=== PATIENT | female | born 1950 | race Caucasian/White ===

== ENCOUNTER 2018-04-04 05:57 | Day surgery (SDC) | payer MEDICARE, OTHER ==
[2018-04-04] MEDS ORDERED: DIPRIVAN 200 MG/20 ML IV ONE (05:58)
[2018-04-04] MEDS ORDERED: Lactated Ringers 1,000 ML IV SCH (06:30)
[2018-04-04 08:43] VITALS: BP 122/77; PULSE 71; O2SAT 97
--- NOTE | 2018-04-04 10:43 | OP ---
SURGERY DATE/TIME: 04/04/201818 PREOPERATIVE DIAGNOSIS: Screening exam. POSTOPERATIVE DIAGNOSIS: Sigmoid diverticulosis otherwise normal colon. PROCEDURE: Colonoscopy. SURGEON: Dr. Ramos. ANESTHESIA: MAC. Medications given by anesthesia department. HISTORY: The patient is a 68 year-old white female presenting now for screening colonoscopy. She was appraised of the risks of the procedure including the risk of perforation, phlebitis, untoward reaction to medication, bleeding and missed lesions. The patient verbalized her understanding and desired to have the procedure performed. DESCRIPTION OF PROCEDURE: The patient was given the medications by the anesthesia department. She had continuous pulse oximetry, ECG monitoring, intermittent blood pressure monitoring and tidal CO2 monitoring during the examination. She was placed in the left lateral decubitus position. A digital rectal examination was performed and revealed normal anal sphincter tone and no masses. The flexible Olympus pediatric colonoscope was used to intubate the rectum. A view of the colon was developed sequentially to the cecum. Upon insertion and withdrawal, including a retroflex view in the rectum, no mucosal lesions found other than moderate sigmoid diverticulosis. The scope was removed from the patient who tolerated the procedure well and was sent back to OP recovery in good condition. The prep was noted to be fair to good.
== END 2018-04-04 08:58 | disposition home or self-care (01) ==
LOC: SDC 05:57
PROVIDERS: ATTEND Family Medicine
DX: Z12.11 Encounter for screening for malignant neoplasm of colon (principal); K57.30 Diverticulosis of large intestine without perforation or abscess without bleeding; E11.9 Type 2 diabetes mellitus without complications; E78.5 Hyperlipidemia, unspecified
CPT/HCPCS: 94250; J2704

== ENCOUNTER 2021-10-23 10:59 | Emergency (ER) | payer MEDICARE, OTHER ==
[2021-10-23] MEDS ORDERED: Pepcid 20 MG PO ONE (11:30)
[2021-10-23] MEDS ORDERED: BENADRYL 25 MG CAPSULE PO ONE (11:30)
[2021-10-23] MEDS ORDERED: solu-MEDROL 125 MG, Sterile H2O 10 ml 10 ML IM ONE ×2 (11:31)
--- NOTE | 2021-10-23 11:31 | ERPHSYRPT ---
- History of Present Illness Time Seen by Provider: 10/23/21 11:29 Patient Subjective Stated Complaint: Pt states "I noticed some hives and I noticed my face swelling a little yeserday. I took an allergy med last night but my face is still swollen." Triage Nursing Assessment: Pt presented alert and oriented X 3, skin pwd pt face is slightly flushed with slight swelling noticed. no difficulty breathing, no neck or mouth swelling. Allergies/Adverse Reactions: No Known Drug Allergies Allergy (Verified 04/04/18 06:22) Home Medications: Lansoprazole 30 mg PO DAILY 07/13/17 [History] Levothyroxine Sodium 75 Mcg [Synthroid 75 Mcg] 75 mcg PO DAILY 07/13/17 [History] Magnesium Chloride 64 mg [Slow-Mag 64 MG] 64 mg PO DAILY 07/13/17 [History] Meloxicam 14 mg PO DAILY PRN PRN 07/13/17 [History] Triamterene/Hydrochlorothiazid [Triamterene-Hctz 37.5-25 mg Cp] 37.5 mg PO DAILY 07/13/17 [History] Hx Tetanus, Diphtheria Vaccination/Date Given: No Hx Influenza Vaccination/Date Given: No Hx Pneumococcal Vaccination/Date Given: No Immunizations Up to Date: Yes Travel Risk - International Travel Have you traveled outside of the country in past 3 weeks: No - Coronavirus Screening Are you exhibiting any of the following symptoms?: No Close contact with a COVID-19 positive Pt in past 14-21 Days: No - Vaccine Status Have you recieved a Covid-19 vaccination: Yes [facility]: Moderna - Vaccination Dates Date of 2cond Vaccination (if applicable): 2020 - Past Medical History Pertinent Past Medical History: Yes Neurological History: No Pertinent History ENT History: No Pertinent History Cardiac History: High Cholesterol Respiratory History: No Pertinent History Endocrine Medical History: Diabetes Type II, Hypothyroidism Musculoskeletal History: Osteoarthritis GI Medical History: No Pertinent History History: Other Psycho-Social History: No Pertinent History Female Reproductive Disorders: Menstrual Problems Other Medical History: THYROID REMOVED, CHOLECYSTECTOMY, HYSTERECTOMY - Past Surgical History Past Surgical History: Yes Neuro Surgical History: No Pertinent History Cardiac: No Pertinent History Respiratory: No Pertinent History Gastrointestinal: Cholecystectomy Genitourinary: No Pertinent History Musculoskeletal: No Pertinent History Female Surgical History: Hysterectomy Other Surgical History: thyroidectomy - Social History Smoking Status: Never smoker Exposure to second hand smoke: No Drug Use: none Patient Lives Alone: No - Nursing Vital Signs Nursing Vital Signs: Initial Vital Signs Temperature 97.5 F 10/23/21 11:07 Pulse Rate 83 10/23/21 11:07 Respiratory Rate 20 10/23/21 11:07 Blood Pressure 150/103 10/23/21 11:07 O2 Sat by Pulse Oximetry 99 10/23/21 11:07 Pain Scale Pain Intensity 0 - Physical Exam SpO2: 99 - Departure Departure Disposition: Home Clinical Impression: Allergic reaction Qualifiers: Encounter type: initial encounter Qualified Code(s): T78.40XA - Allergy, unspecified, initial encounter Condition: Stable Critical Care Time: No Referrals: MINOO PORTILLO [Primary Care Provider] - Follow up/PCP as directed (tomorrow for re evaluation) Instructions: Angioedema, Anaphylaxis (DC) Additional Instructions: follow up with PCP for re evaluation, return if has tongue swelling/throat closing sensation, weakness/feeling as going to pass out etc. Prescriptions: Diphenhydramine HCl 25 mg [Benadryl 25 mg Capsule] 25 mg PO Q4H PRN PRN #20 cap PRN Reason: Allergies Famotidine 20 mg [Pepcid 20 MG] 20 mg PO BID #10 tablet
[2021-10-23] MEDS ORDERED: BENADRYL 25 MG CAPSULE ONE (11:33)
[2021-10-23] MEDS ORDERED: Sterile H2O 10 ml IJ ONE (11:33)
[2021-10-23] MEDS ORDERED: Pepcid 20 MG ONE (11:33)
[2021-10-23] MEDS ORDERED: solu-MEDROL ONE (11:34)
[2021-10-23 12:09] VITALS: BP 128/83; PULSE 75; O2SAT 98
== END 2021-10-23 12:19 | disposition home or self-care (01) ==
LOC: ED 10:59
DX: T78.40XA Allergy, unspecified, initial encounter (principal); L50.0 Allergic urticaria; R60.0 Localized edema; E78.5 Hyperlipidemia, unspecified; E11.9 Type 2 diabetes mellitus without complications; Z79.899 Other long term (current) drug therapy
CPT/HCPCS: 96372; 99284; J2930; A9270-GY

== ENCOUNTER 2022-11-23 08:08 | Emergency (ER) | payer MEDICARE, OTHER ==
[2022-11-23] MEDS ORDERED: Pepcid 20 MG VIAL IV ONE ×2 (08:22→08:48)
[2022-11-23] MEDS ORDERED: BENADRYL 50 MG/ML IV ONE (08:22)
[2022-11-23] MEDS ORDERED: solu-MEDROL 125 MG, Sterile H2O 10 ml 2 ML IV ONE ×2 (08:22)
[2022-11-23] MEDS ORDERED: Sodium Chloride 0.9% 1000 ML 1,000 ML IV SCH (08:30)
[2022-11-23 08:39] LABS: Absolute Neutrophil Ct (ANC) 5.79 x10^3/uL (1.4-6.9); BASOPHIL % 0.6 % (0.0-0.4); Basophil (Absolute #) 0.05 x10^3/uL (0-0.4); Eosinophil % 3.8 % (0.00-5.0); Eosinophil (Absolute #) 0.33 x10^3/uL (0-0.5); Hematocrit 40.2 % (35-47); Hemoglobin 12.8 g/dL (12.0-16.0); IMMATURE GRAN # 0.03 x10^3u/L (0.00-0.03); IMMATURE GRAN % 0.3 % (0.00-0.4); Lymphocytes % 19.7 % (24.0-44.0); Mean Cell Volume 88.7 fL (78-100); Mean Corpuscular Hemoglobin 28.3 pg (26-32); Mean Corpuscular Hgb Concent. 31.8 g/dL (32-36); Mean Platelet Volume 10.5 fL (7.5-11.0); Monocyte (Absolute #) 0.72 x10^3/uL (0.0-1.3); Monocytes % 8.4 % (0.0-12.0); Neutrophil % 67.2 % (36.0-66.0); Platelet Count 281 x10^3/uL (150-450); Red Blood Count 4.53 x10^6/uL (4.1-5.4); Red Cell Distribution Width 13.2 % (11.5-14.0); White Blood Count 8.6 x10^3/uL (4.0-10.5)
[2022-11-23] MEDS ORDERED: Sodium Chloride 0.9% 1000 ML 1,000 ML ONE (08:48)
[2022-11-23] MEDS ORDERED: Sterile H2O 10 ml IJ ONE (08:48)
[2022-11-23] MEDS ORDERED: solu-MEDROL ONE (08:48)
[2022-11-23] MEDS ORDERED: BENADRYL 50 MG/ML ONE (08:48)
--- NOTE | 2022-11-23 08:51 | ERPHSYRPT ---
- History of Present Illness Time Seen by Provider: 11/23/22 08:15 Source: patient Exam Limitations: no limitations Patient Subjective Stated Complaint: C/O Facial swelling that started Wednesday night. Triage Nursing Assessment: Patient ambulated back to ER. No SOB. She is alert and oriented. Face is red and swollen; edema noted in bilateral eyelids. Patient keeps clearing her throat and has a dry, non-productive cough. Physician History: Patient is a 72-year-old white female who presents with a complaint of a "cold" for 4 to 5 days. Yesterday she noted feeding swelling of her face and her mouth and her throat became sore. She is also had a dry nonproductive cough. She did go to [facility] and was tested for strep flu and COVID all negative. Her only new medicine that she has been using to treat her cold was guaifenesin Timing/Duration: day(s) (5) Severity: moderate Associated Symptoms: cough Allergies/Adverse Reactions: No Known Drug Allergies Allergy (Verified 11/23/22 08:21) Home Medications: Lansoprazole 30 mg PO DAILY 07/13/17 [History] Levothyroxine Sodium 75 Mcg [Synthroid 75 Mcg] 75 mcg PO DAILY 07/13/17 [History] Magnesium Chloride 64 mg [Slow-Mag 64 MG] 64 mg PO DAILY 07/13/17 [History] Meloxicam 14 mg PO DAILY PRN PRN 07/13/17 [History] Triamterene/Hydrochlorothiazid [Triamterene-Hctz 37.5-25 mg Cp] 37.5 mg PO DAILY 07/13/17 [History] Hx Tetanus, Diphtheria Vaccination/Date Given: Yes Hx Influenza Vaccination/Date Given: Yes Hx Pneumococcal Vaccination/Date Given: Yes Immunizations Up to Date: Yes Travel Risk - International Travel Have you traveled outside of the country in past 3 weeks: No - Coronavirus Screening Are you exhibiting any of the following symptoms?: Yes Symptoms: Cough: New Onset Close contact with a COVID-19 positive Pt in past 14-21 Days: No - Vaccine Status Have you recieved a Covid-19 vaccination: Yes [employer]: Moderna - Vaccination Dates Date of 2cond Vaccination (if applicable): 2020 - Review of Systems Constitutional: No Fever, No Chills Eyes: No Symptoms, Other (Primary orbital swelling) Ears, Nose, & Throat: No Symptoms, Throat Pain, Throat Swelling Respiratory: Cough, No Dyspnea Cardiac: No Chest Pain, No Edema, No Syncope Abdominal/Gastrointestinal: No Abdominal Pain, No Nausea, No Vomiting, No Diarrhea Genitourinary Symptoms: No Dysuria Musculoskeletal: No Back Pain, No Neck Pain Skin: No Rash Neurological: No Dizziness, No Focal Weakness, No Sensory Changes Psychological: No Symptoms Endocrine: No Symptoms All Other Systems: Reviewed and Negative - Past Medical History Pertinent Past Medical History: Yes Neurological History: No Pertinent History ENT History: No Pertinent History Cardiac History: High Cholesterol, Hypertension Respiratory History: No Pertinent History Endocrine Medical History: Diabetes Type II, Hypothyroidism Musculoskeletal History: Osteoarthritis GI Medical History: Gallbladder Disease History: Other Psycho-Social History: No Pertinent History Female Reproductive Disorders: Menstrual Problems Other Medical History: Leaky Heart Valve - Past Surgical History Past Surgical History: Yes Neuro Surgical History: No Pertinent History Cardiac: No Pertinent History Respiratory: No Pertinent History Gastrointestinal: Cholecystectomy Genitourinary: No Pertinent History Musculoskeletal: No Pertinent History Female Surgical History: Hysterectomy Other Surgical History: thyroidectomy - Social History Smoking Status: Never smoker Exposure to second hand smoke: No Drug Use: none Patient Lives Alone: No - Nursing Vital Signs Nursing Vital Signs: Initial Vital Signs Temperature 98 F 11/23/22 08:09 Pulse Rate 78 11/23/22 08:09 Respiratory Rate 18 11/23/22 08:09 Blood Pressure 132/96 11/23/22 08:09 O2 Sat by Pulse Oximetry 99 11/23/22 08:09 Pain Scale Pain Intensity 0 - Physical Exam General Appearance: mild distress, alert Eye Exam: PERRL/EOMI, eyes nml inspection, other (Swelling of both eyes periorbital area) Ears, Nose, Throat Exam: TMs normal, pharynx normal, moist mucous membranes, pharyngeal erythema (Uvula swollen) Neck Exam: normal inspection, non-tender, supple, full range of motion Respiratory Exam: normal breath sounds, lungs clear, No respiratory distress Cardiovascular Exam: regular rate/rhythm, normal heart sounds, normal peripheral pulses Gastrointestinal/Abdomen Exam: soft, normal bowel sounds, No tenderness, No mass Back Exam: normal inspection, normal range of motion, No CVA tenderness, No vertebral tenderness Extremity Exam: normal inspection, normal range of motion, pelvis stable Neurologic Exam: alert, oriented x 3, cooperative, normal mood/affect, nml cerebellar function, nml station & gait, sensation nml, No motor deficits Skin Exam: normal color, warm, dry, No rash Lymphatic Exam: No adenopathy SpO2 Interpretation: normal SpO2: 99 O2 Delivery: Room Air - Course Nursing assessment & vital signs reviewed: Yes - Radiology Exams Chest X-ray Interpretation: Reviewed by me, Negative - CT Exams Other CT Interpretation: Other (Sinuses were positive for bilateral para nasal sinus disease.) Ordered Tests: Active Orders 24 hr Category Date Time Status IV Insertion STAT Care 11/23/22 08:22 Active CHEST 1 VIEW (PORTABLE) Stat Exams 11/23/22 08:22 Completed SINUSES WITHOUT CONTRAST [CT] Stat Exams 11/23/22 08:24 Completed CBC W DIFF Stat Lab 11/23/22 08:36 Completed CMP Stat Lab 11/23/22 08:36 Completed UA W/RFX UR CULTURE Stat Lab 11/23/22 08:22 Ordered Medication Summary Generic Name Dose Route Start Last Admin Trade Name Freq PRN Reason Stop Dose Admin Sodium Chloride 1,000 mls @ 100 mls/hr 11/23/22 08:30 11/23/22 08:52 Sodium Chloride 0.9% 1000 Ml IV 12/23/22 08:29 100 mls/hr .Q10H JOSE Administration Discontinued Medications Generic Name Dose Route Start Last Admin Trade Name Freq PRN Reason Stop Dose Admin Methylprednisolone Sodium 0 mg 11/23/22 08:22 Succinate 125 mg/ Sterile IV 11/23/22 08:23 Water 2 ml STAT ONE Diphenhydramine HCl 25 mg 11/23/22 08:22 11/23/22 08:54 Diphenhydramine Hcl 50 Mg/Ml Vial IV 11/23/22 08:23 25 mg STAT ONE Administration Diphenhydramine HCl Confirm 11/23/22 08:48 Diphenhydramine Hcl 50 Mg/Ml Vial Administered 11/23/22 08:49 Dose 50 mg .ROUTE .STK-MED ONE Famotidine 20 mg 11/23/22 08:22 11/23/22 08:53 Famotidine 20 Mg/1 Vial IV 11/23/22 08:23 20 mg STAT ONE Administration Famotidine Confirm 11/23/22 08:48 Famotidine 20 Mg/1 Vial Administered 11/23/22 08:49 Dose 20 mg IV .STK-MED ONE Methylprednisolone Sodium Succinate Confirm 11/23/22 08:48 Methylprednisolone Sod Suc 40m 40 Mg/Ml Vial Administered 11/23/22 08:49 Dose 120 mg .ROUTE .STK-MED ONE Sterile Water Confirm 11/23/22 08:48 Water For Injection,Sterile 10 Ml Vial Administered 11/23/22 08:49 Dose 10 ml IJ .STK-MED ONE Lab/Rad Data: Laboratory Result Diagrams 11/23/22 08:36 11/23/22 08:36 Laboratory Results 11/23/22 11/23/22 Range/Units 08:36 08:36 WBC 8.6 (4.0-10.5) x10^3/uL RBC 4.53 (4.1-5.4) x10^6/uL Hgb 12.8 (12.0-16.0) g/dL Hct 40.2 (35-47) % MCV 88.7 (78-100) fL MCH 28.3 (26-32) pg MCHC 31.8 L (32-36) g/dL RDW 13.2 (11.5-14.0) % Plt Count 281 (150-450) x10^3/uL MPV 10.5 (7.5-11.0) fL Gran % 67.2 H (36.0-66.0) % Immature Gran % (Auto) 0.3 (0.00-0.4) % Nucleat RBC Rel Count 0.0 (0.00-0.1) % Eos # (Auto) 0.33 (0-0.5) x10^3/uL Immature Gran # (Auto) 0.03 (0.00-0.03) x10^3u/L Absolute Lymphs (auto) 1.70 (1.0-4.6) x10^3/uL Absolute Monos (auto) 0.72 (0.0-1.3) x10^3/uL Absolute Nucleated RBC 0.00 (0.00-0.01) x10^3u/L Lymphocytes % 19.7 L (24.0-44.0) % Monocytes % 8.4 (0.0-12.0) % Eosinophils % 3.8 (0.00-5.0) % Basophils % 0.6 (0.0-0.4) % Absolute Granulocytes 5.79 (1.4-6.9) x10^3/uL Basophils # 0.05 (0-0.4) x10^3/uL Sodium 136 L (137-145) mmol/L Potassium 3.7 (3.5-5.1) mmol/L Chloride 93 L (98-107) mmol/L Carbon Dioxide 29 (22-30) mmol/L Anion Gap 17.4 H (5-15) MEQ/L BUN 10 (7-17) mg/dL Creatinine 0.56 (0.52-1.04) mg/dL Estimated GFR > 60.0 ML/MIN Glucose 197 H (74-106) mg/dL Calcium 9.3 (8.4-10.2) mg/dL Total Bilirubin 0.60 (0.2-1.3) mg/dL AST 28 (14-36) U/L ALT 25 (0-35) U/L Alkaline Phosphatase 92 (38-126) U/L Serum Total Protein 8.1 (6.3-8.2) g/dL Albumin 4.5 (3.5-5.0) g/dL - Progress Progress: improved Medical Desision Making - Independent Historian Additional History obtained from: Spouse - Diagnostic Testing Diagnostic test were ordered, analyzed, and reviewed by me: Yes Radiological Interpretation: Reviewed by me - Departure Departure Disposition: Home Clinical Impression: Sinusitis, Allergic reaction Condition: Stable Critical Care Time: No Referrals: AIMEE MCKEON NP [Primary Care Provider] - Follow up/PCP as directed Instructions: Angioedema (DC), Sinusitis, Adult (DC) Prescriptions: Prednisone 10 mg [Deltasone 10 mg] 20 mg PO TID 6 Days #36 tablet Cephalexin Mh 500 mg [Keflex 500 mg] 500 mg PO Q6H 10 Days #40 cap
[2022-11-23 08:52] LABS: ALBUMIN 4.5 g/dL (3.5-5.0); ALKALINE PHOSPHATASE 92 U/L (38-126); ANION GAP 17.4 MEQ/L (5-15); BLOOD UREA NITROGEN 10 mg/dL (7-17); CHLORIDE 93 mmol/L (98-107); Calcium 9.3 mg/dL (8.4-10.2); Carbon Dioxide 29 mmol/L (22-30); Creatinine 1 0.56 mg/dL (0.52-1.04); EST GLOMERULAR FILTRATION RATE > 60.0 ML/MIN; Glucose 197 mg/dL (74-106); Potassium 3.7 mmol/L (3.5-5.1); SGOT/AST 28 U/L (14-36); SGPT/ALT 25 U/L (0-35); SODIUM 136 mmol/L (137-145); Total Protein 8.1 g/dL (6.3-8.2)
--- NOTE | 2022-11-23 09:10 | XRAY ---
Indication: Cough. Comparison: July 23, 2020 Portable chest again demonstrates normal heart and lungs. Bony thorax intact again with osteopenia, mild degenerative changes, and surgical clips base of neck. No new/acute findings.
--- NOTE | 2022-11-23 09:14 | XRAY ---
Indication: Facial swelling 1 week. Multiple contiguous axial images obtained through the paranasal sinuses. Sagittal and coronal reformatted images obtained. Comparison: None Mild right and minimal left maxillary sinus mucosal thickening without fluid leveling. Minimal mucosal thickening in both ostiomeatal units. Remaining frontal, ethmoid, and sphenoid sinuses are pneumatized and clear. Incidental right middle turbinate jami bullosa and minimal nasal septal deviation to the left. No acute fracture, suspicious bony lesions, or osseous destructive process. Remaining visualized soft tissues including orbits and base of brain are unremarkable. Impression: Mild paranasal sinus disease as detailed. Incidental right middle turbinate jami bullosa and minimal nasal septal deviation.
[2022-11-23 09:25] VITALS: BP 141/81; PULSE 71
[2022-11-23 09:33] VITALS: O2SAT 99
== END 2022-11-23 09:47 | disposition home or self-care (01) ==
LOC: ED 08:08
DX: J32.9 Chronic sinusitis, unspecified (principal); T78.40XA Allergy, unspecified, initial encounter; R05.9 Cough, unspecified; J02.9 Acute pharyngitis, unspecified; E78.5 Hyperlipidemia, unspecified; I10 Essential (primary) hypertension; E11.9 Type 2 diabetes mellitus without complications; Z79.899 Other long term (current) drug therapy
CPT/HCPCS: 36000; 36415; 70486; 71045; 80053; 85025; 96374; 96375; 99284; J1200; J2920; J2930